=== PATIENT | female | born 1960 | race Caucasian/White ===

== ENCOUNTER → 2019-01-23 09:23 | Outpatient (CLI) | payer OTHER, SELFPAY ==
--- NOTE | 2019-01-23 09:33 | DI.RAD.S_ITS ---
PROCEDURE: XR WRIST LT MIN 3V INDICATIONS: l hand pain TECHNIQUE: 4 views of the wrist were acquired. COMPARISON: None. FINDINGS: Bones: There is a nondisplaced mildly comminuted fracture of the distal radius extending to the articular surface. No other fractures or dislocations noted. Scaphoid view: Scaphoid unremarkable Soft tissues: No suspicious soft tissue calcifications. IMPRESSION: Nondisplaced, mildly comminuted fracture of the distal radius extending to the articular surface. Dictated by: Russ Ramirez M.D. on 01/23/2019 at 9:54 Approved by: Russ Ramirez M.D. on 01/23/2019 at 9:55
== END ==
PROVIDERS: Visit Provider Physician Assistant
DX: S52.502A Unspecified fracture of the lower end of left radius, initial encounter for closed fracture (principal)
CPT/HCPCS: 73110

== ENCOUNTER → 2019-01-25 11:38 | Outpatient (CLI) | payer OTHER, SELFPAY ==
--- NOTE | 2019-01-25 | DI.CT.S_ITS ---
PROCEDURE: CT UE LT WO CON INDICATIONS: Pain in left wrist TECHNIQUE: Noncontrast 1 mm axial sections acquired through the carpal bones, with coronal and sagittal reformats. COMPARISON: [facility], CR, XR WRIST LT MIN 3V, 01/23/2019, 9:34. FINDINGS: Image quality: Excellent. Bones: There is a distal radius Colles' fracture, intra-articular, best seen along the dorsal margin of the distal radius which has a longitudinally oriented component extending proximally to the metadiaphyseal junction of the distal radius, nondisplaced. 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 Soft tissues: No evidence of ligamentous disruption or hematoma after trauma. IMPRESSION: Comminuted but only minimally displaced fractures involve the distal radius, best seen along the dorsal margin of the scaphoid and extending into the articular surface. There is a longitudinal fracture component that extends proximally to the metadiaphyseal junction of the distal radius, but this is nondisplaced. No intra-articular loose body is seen. No definite carpal fracture is found. Dictated by: Masoud Antunez M.D. on 01/25/2019 at 12:49 Approved by: Masoud Antunez M.D. on 01/25/2019 at 13:05
== END ==
PROVIDERS: Visit Provider Orthopaedic Surgery
DX: M25.532 Pain in left wrist (principal); S52.532A Colles' fracture of left radius, initial encounter for closed fracture
CPT/HCPCS: 73200